=== PATIENT | male | born 2000 | race Caucasian/White ===

== ENCOUNTER 2023-09-03 00:31 | Emergency (ER) | payer OTHER, SELFPAY ==
--- NOTE | ~2023-09-03 | XR_ITS ---
EXAMINATION: XR FOOT, LEFT CLINICAL INFORMATION: Fall. Swelling. COMPARISON: None available. TECHNIQUE: AP, lateral, and oblique views of the left foot. FINDINGS: The bone mineralization is normal. The joint spaces are maintained. No fracture is seen. Soft tissues are grossly unremarkable as well. XR/XR foot LT min 3V IMPRESSION: No significant abnormality identified.
--- NOTE | ~2023-09-03 | XR_ITS ---
EXAMINATION: XR ANKLE, LEFT CLINICAL INFORMATION: Fall. Pain and swelling. COMPARISON: None available. TECHNIQUE: Two views of the left ankle. FINDINGS: No fracture. Alignment is anatomic. No erosions. Joint spaces are maintained. There is mild lateral soft tissue swelling. XR/XR ankle LT min 3V IMPRESSION: Mild lateral soft tissue swelling. No fracture.
[2023-09-03 00:36] VITALS: BP 139/61; PULSE 100; RESP 16; TEMP 36.6; O2SAT 97; BMI 31.1
[2023-09-03 01:16] VITALS: BP 131/74; PULSE 87; RESP 16; TEMP 36.8; O2SAT 98
--- NOTE | 2023-09-03 01:55 | ED.GENADULT ---
HPI - General Adult General Chief complaint: Extremity Injury, Lower Stated complaint: Lt Ankle inj Time Seen by Provider: 09/03/23 00:41 Source: patient, RN notes reviewed and old records reviewed Mode of arrival: ambulatory Limitations: no limitations History of Present Illness HPI narrative: 23-year-old male presents for evaluation of left ankle pain Patient reports that at work he jumped off of a truck bed about 4 ft in the air He landed without any injury and proceeded to finish his day working without any significant discomfort However he states that after taking his work boots off he started to develop pain and swelling in the left foot and ankle The pain worsened and woke him up in the middle the night which prompted his ER visit He denies any other injuries or pain Related Data Allergies Allergy/AdvReac Type Severity Reaction Status Date / Time No Known Allergies Allergy Verified 09/03/23 00:43 Review of Systems Musculoskeletal: Musculoskeletal: Reports arthralgias, Reports joint swelling and Reports limited range of motion PMFSH Social History Social History Advance Directives: No Advance Directives Information Provided: No Physical Exam ED Vital Signs: Vital Signs - 24 hr 09/03/23 00:36 09/03/23 01:16 Temperature 97.8 F 98.2 F Pulse Rate 100 87 Respiratory Rate 16 16 Blood Pressure 139/61 131/74 Pulse Oximetry 97 98 Oxygen Delivery Method Room Air Room Air BMI result Body Mass Index 31.1 Const General: healthy appearing, comfortable, no acute distress, alert and awake Nutritional Appearance: well nourished Orientation/consciousness: patient oriented x3 HENMT Head: Yes normocephalic and Yes atraumatic Eyes Eyelids: Yes eyelids normal Conjunctivae: conjunctivae normal Sclerae: sclerae normal Corneas: corneas normal Pupils: Equal, round and reactive pupils present EOM: EOMs intact bilaterally Neck Neck: Yes full ROM Resp Effort & Inspection: normal respiratory effort, able to speak in complete sentences and not labored Skin General skin exam: elasticity normal Neuro General: patient oriented x3 Cranial nerves: Yes Equal, round and reactive pupils present and Yes Bilaterally intact EOM present Cognition (Neuro): normal cognition Extrem Other: Minimal left anterior ankle edema. No ecchymosis or wounds, no tenderness over the medial and lateral malleolus. There is some tenderness of the left talofibular ligament. Good range of motion left ankle Medical Decision Making Medical Decision Making MDM Narrative: X-rays of the left ankle and foot ordered to evaluate for fracture. Clinically more consistent with an ankle sprain Differential Diagnosis Differential Diagnoses: The differential diagnosis associated with the presentation includes Ankle sprain Ankle fracture Contusion Dislocation Independent Interpretation I performed an independent interpretation of an: Plain X-Ray (No obvious acute ankle fracture) Discharge Plan Discharge Clinical Impression: Ankle sprain and strain Patient Disposition: Home, Self-Care Instructions: Ankle Sprain (ED) Additional Instructions: Your x-ray did not show any evidence of fracture You likely have an ankle sprain Use Motrin/Tylenol for pain and swelling Elevate the leg above your heart while resting Ice the area every 4 hours for 10-15 minutes
== END 2023-09-03 02:26 | disposition home or self-care (01) ==
PROVIDERS: Emergency Provider Internal Medicine
DX: S93.402A Sprain of unspecified ligament of left ankle, initial encounter (principal); S96.912A Strain of unspecified muscle and tendon at ankle and foot level, left foot, initial encounter; W17.89XA Other fall from one level to another, initial encounter; Y93.89 Activity, other specified; Y92.9 Unspecified place or not applicable; Y99.0 Civilian activity done for income or pay
CPT/HCPCS: 73610; 73630; 99282; 99283